=== PATIENT | female | born 1990 | race Caucasian/White ===

== ENCOUNTER 2016-05-23 12:47 | Emergency (ER) | payer MEDICAID ==
[2016-05-23] MEDS ORDERED: ACETAMINOPHEN 325 MG TABLET PO STA (15:35)
[2016-05-23] MEDS ORDERED: ONDANSETRON ODT 4 MG TABLET TL STA (15:35)
[2016-05-23] MEDS ORDERED: DEXAMETHASONE 10 MG/ML VIAL PO STA (15:35)
[2016-05-23] MEDS ORDERED: ONDANSETRON ODT 4 MG TABLET ONE (15:46)
[2016-05-23] MEDS ORDERED: DEXAMETHASONE 10 MG/ML VIAL ONE (15:46)
[2016-05-23] MEDS ORDERED: ACETAMINOPHEN 325 MG TABLET PO ONE (15:46)
== END 2016-05-23 16:56 | disposition home or self-care (01) ==
DX: J10.1 Influenza due to other identified influenza virus with other respiratory manifestations (principal)
CPT/HCPCS: 87275; 87276; 99283; A9270; Q0162

== ENCOUNTER 2017-06-02 17:03 | Emergency (ER) | payer MEDICAID ==
--- NOTE | 2017-06-02 17:29 | ED Physician Documentation ---
PD HPI CHEST PAIN - Stated complaint Stated Complaint: CP - Chief complaint Chief Complaint: Cardiac - History obtained from History obtained from: Patient - History of Present Illness Timing - onset: Other (For the last month she has had been having increasing episodic chest pain especially at night when lying flat in bed. She has not noticed any food triggers. She is not short of breath per se but it does get worse with deep breathing. It is in the low sternum. No recent travel, control use, pedal edema, leg pain, pertinent family history, or history of DVT or PE or hemoptysis.) Review of Systems Constitutional: denies: Fever, Chills Ears: reports: Reviewed and negative Throat: reports: Reviewed and negative Cardiac: reports: Chest pain / pressure. denies: Palpitations, Pedal edema, Calf pain Respiratory: denies: Dyspnea, Cough, Hemoptysis, Wheezing PD PAST MEDICAL HISTORY - Past Medical History Past Medical History: No Cardiovascular: None Respiratory: None Neuro: None Endocrine/Autoimmune: None - Past Surgical History Past Surgical History: No - Present Medications Home Medications: Ambulatory Orders Medication Instructions Recorded Confirmed HYDROcod/ACETAM 5/325 [[place] 5/325] 1 - 2 ea PO Q6H PRN #15 tablet 06/02/17 - Allergies Allergies/Adverse Reactions: Allergies Allergy/AdvReac Type Severity Reaction Status Date / Time latex Allergy Hives Verified 05/23/16 13:05 - Social History Does the pt smoke?: No Smoking Status: Never smoker Does the pt drink ETOH?: No - Immunizations Immunizations are current?: Yes PD ED PE NORMAL - Vitals Vital signs reviewed: Yes - General General: Alert and oriented X 3, No acute distress - Neck Neck: Supple, no meningeal sign, No bony TTP - Cardiac Cardiac: RRR, No murmur - Respiratory Respiratory: No respiratory distress, Clear bilaterally - Abdomen Abdomen: Non distended, Other (Mild TTP RUQ no G/R) - Back Back: No CVA TTP, No spinal TTP - Extremities Extremities: No edema, No calf tenderness / cord - Neuro Neuro: Alert and oriented X 3, Normal speech Results - Vitals Vitals: Vital Signs - 24 hr 06/02/17 06/02/17 17:10 19:55 Temperature 36.5 C 36.6 C Heart Rate 86 74 Respiratory 18 20 Rate Blood Pressure 176/81 H 130/68 O2 Saturation 99 96 Oxygen O2 Source Room air - EKG (time done) 1712 Rate: Rate (enter#) (78) Rhythm: NSR [place]: Normal Intervals: Normal MA QRS: Normal Ischemia: Normal ST segments Computer interpretation: Agree with computer - Labs Labs: Laboratory Tests 06/02/17 06/02/17 06/02/17 17:40 17:40 17:40 WBC 7.5 RBC 4.61 Hgb 13.0 Hct 38.6 MCV 83.8 MCH 28.2 MCHC 33.7 RDW 13.1 Plt Count 227 MPV 9.2 Neut # 4.3 Lymph # 2.2 Forrest # 0.6 Eos # 0.3 Baso # 0.1 Absolute Nucleated RBC 0.01 Nucleated RBC % 0.1 Sodium 137 Potassium 3.9 Chloride 105 Carbon Dioxide 23 Anion Gap 9.0 BUN 16 Creatinine 0.8 Estimated GFR (MDRD) 86 L Glucose 98 Calcium 9.4 Total Bilirubin 0.6 AST 46 H ALT 93 H Alkaline Phosphatase 44 Troponin I < 0.04 Total Protein 8.0 Albumin 4.5 Globulin 3.5 Albumin/Globulin Ratio 1.3 Lipase 32 Serum HCG, Qual 06/02/17 17:40 WBC RBC Hgb Hct MCV MCH MCHC RDW Plt Count MPV Neut # Lymph # Forrest # Eos # Baso # Absolute Nucleated RBC Nucleated RBC % Sodium Potassium Chloride Carbon Dioxide Anion Gap BUN Creatinine Estimated GFR (MDRD) Glucose Calcium Total Bilirubin AST ALT Alkaline Phosphatase Troponin I Total Protein Albumin Globulin Albumin/Globulin Ratio Lipase Serum HCG, Qual NEGATIVE - Rads (name of study) 2v chest Radiology: EMP read contemporaneously (NAD) RUQ sono Radiology: EMP read contemporaneously (stone in neck) PD MEDICAL DECISION MAKING - ED course ED course: 26-year-old woman with episodic subacute chest pain which on examination is most likely biliary in origin which is corresponded with a stone in the gallbladder neck but no other evidence of cholecystitis. The fatty liver is previously known diagnosis by the patient. She was advised on dietary changes pending surgical consultation for potential cholecystectomy. Departure - Departure Disposition: 01 Home, Self Care Clinical Impression: Biliary colic Chest pain Qualifiers: Chest pain type: unspecified Qualified Code(s): R07.9 - Chest pain, unspecified Condition: Good Record reviewed to determine appropriate education?: Yes Instructions: ED Chest Pain NonCardiac, ED Gallstone W Biliary Colic Follow-Up: ALBINA CANO MD [Provider Admit Priv/Credential] - Prescriptions: HYDROcod/ACETAM 5/325 [[place] 5/325] 1 - 2 ea PO Q6H PRN #15 tablet PRN Reason: Pain Comments: Follow-up with the surgeon for evaluation for having her gallbladder removed, very low fat/low protein diet until then as discussed. Return if worse. Your blood pressure was elevated today on check into the emergency department. This does not mean that you have hypertension, it is a common phenomenon to come to the emergency department and have elevated blood pressure. I recommend that you see your primary care physician within the week to have it rechecked when you are feeling better. Do not drink or drive while taking narcotic pain medication. Note that many narcotic pain relievers also contain Tylenol/acetaminophen. Please ensure that your total dose of acetaminophen from all sources does not exceed 3 g (3000 mg) per day. You may get constipated while on this medication. Take a stool softener such as Colace twice a day while you are on it. Also add an ajjl-pbn-[id number] laxative such as senna or MiraLAX on any day that you do not have a bowel movement. If you received a narcotic pain medication or sedative while in the emergency department, do not drive for the next 24 hours.
[2017-06-02 17:46] LABS: BASOPHILS # (AUTO) 0.1 10^3/uL (0.0-0.1); BASOPHILS % (AUTO) 0.8 %; EOSINOPHILS # (AUTO) 0.3 10^3/uL (0.0-0.7); EOSINOPHILS % (AUTO) 3.9 %; LYMPHOCYTES # (AUTO) 2.2 10^3/uL (1.5-3.5); LYMPHOCYTES % (AUTO) 29.2 %; MEAN CORPUSCULAR HEMOGLOBIN 28.2 pg (27.0-31.0); MEAN CORPUSCULAR HGB CONC 33.7 g/dL (32.0-36.0); MEAN CORPUSCULAR VOLUME 83.8 fL (81.0-99.0); MEAN PLATELET VOLUME 9.2 fL (7.9-10.8); MONOCYTES # (AUTO) 0.6 10^3/uL (0.0-1.0); MONOCYTES % (AUTO) 8.6 %; NEUTROPHILS # (AUTO) 4.3 10^3/uL (1.5-6.6); NEUTROPHILS % (AUTO) 57.5 %; PLT - PLATELET COUNT 227 10^3/uL (130-450); RED BLOOD COUNT 4.61 10^6/uL (4.20-5.40); RED CELL DISTRIBUTION WIDTH 13.1 % (12.0-15.0); WHITE BLOOD COUNT 7.5 x10^3/uL (4.8-10.8)
[2017-06-02 17:57] LABS: ALBUMIN 4.5 g/dL (3.2-5.5); ALBUMIN/GLOBULIN RATIO 1.3 (1.0-2.2); BILIRUBIN,TOTAL 0.6 mg/dL (0.2-1.0); CALCIUM 9.4 mg/dL (8.5-10.3); CREATININE 0.8 mg/dL (0.4-1.0)
[2017-06-02 18:18] LABS: HCG,QUALITATIVE BLOOD NEGATIVE
--- NOTE | 2017-06-02 19:03 | XRAY Preliminary Report ---
Exam: XR CHEST 2 VIEW X-RAY IMPRESSION: Normal 2-view chest radiography. [facility] SITE ID: [id number]
--- NOTE | 2017-06-02 19:03 | XRAY Report ---
EXAM: CHEST RADIOGRAPHY EXAM DATE: 06/02/2017 06:30 PM. CLINICAL HISTORY: Chest pain. COMPARISON: None. TECHNIQUE: 2 views. FINDINGS: Lungs/Pleura: No focal opacities evident. No pleural effusion. No pneumothorax. Normal volumes. Mediastinum: Heart and mediastinal contours are unremarkable. Other: None. IMPRESSION: Normal 2-view chest radiography. [facility] Referring Provider Line: [phone] SITE ID: [id number]
[2017-06-02 19:56] VITALS: BP 130/68
--- NOTE | 2017-06-02 20:05 | Ultrasound Preliminary Report ---
Exam: US ABDOMEN LIMITED IMPRESSION: 1. Hepatomegaly with dense echogenic hepatic parenchyma typically seen with fatty replacement. No hep atic lesions. 2. Contracted gallbladder with possible cholelithiasis in the gallbladder neck. No gallbladder wall t hickening. Per hair dresser, the patient is tender over the gallbladder. 3. No biliary ductal dilatation. [facility] SITE ID: [id number]
--- NOTE | 2017-06-02 20:05 | Ultrasound Report ---
EXAM: ABDOMEN ULTRASOUND LIMITED, RUQ EXAM DATE: 06/02/2017 07:36 PM. CLINICAL HISTORY: Chest pain, right upper quadrant tenderness to palpation. COMPARISON: None. TECHNIQUE: Real-time scanning was performed with static images obtained. FINDINGS: Detail limited due to sonographic parameters and body habitus. Liver: Dense echogenic hepatic parenchyma. No hepatic lesions. No intrahepatic ductal dilatation. The entire liver is not optimally visualized. The liver is enlarged, 21 cm. Main portal vein flow: Paten t. Gallbladder: Contracted. No intraluminal calculi. 6 mm echogenic structure possibly a calculus by th e gallbladder neck. Per trailer park manager, the patient is tender over the gallbladder. Biliary System: CBD measures 3 mm. Common bile duct is not well seen. Right kidney is normal in contour and echotexture measures 12.7 cm. No hydronephrosis. The pancreas is not well seen. Other: None. IMPRESSION: 1. Hepatomegaly with dense echogenic hepatic parenchyma typically seen with fatty replacement. No hep atic lesions. 2. Contracted gallbladder with possible cholelithiasis in the gallbladder neck. No gallbladder wall t hickening. Per trailer park manager, the patient is tender over the gallbladder. 3. No biliary ductal dilatation. [facility] Referring Provider Line: [phone] SITE ID: [id number]
[2017-06-02] MEDS ORDERED: HYDROcod/ACET 5/325 Prepack 6 PO STA (20:19)
== END 2017-06-02 20:30 | disposition home or self-care (01) ==
LOC: ED 17:03
DX: K80.50 Calculus of bile duct without cholangitis or cholecystitis without obstruction (principal); R07.9 Chest pain, unspecified; R03.0 Elevated blood-pressure reading, without diagnosis of hypertension
CPT/HCPCS: 36415; 71046; 76705; 80053; 83690; 84484; 84703; 85025; 93005; 99283; 99284

== ENCOUNTER 2017-07-18 08:07 | Outpatient (CLI) | payer MEDICAID ==
--- NOTE | 2017-07-18 17:41 | Ultrasound Report ---
LIMITED ABDOMINAL ULTRASOUND: 07/18/2017 CLINICAL INDICATION: Right upper quadrant pain. COMPARISON: 06/02/2017 TECHNIQUE: Real-time scanning was performed with retail representative static images obtained. FINDINGS: The liver measures 22 cm. Hepatic echogenicity is again diffusely increased, compatible with fatty infiltration. No gross hepatic lesion is appreciated. No intrahepatic biliary dilatation is seen. The common bile duct measures 3 mm. The gallbladder is normal, and the right kidney demonstrates no hydronephrosis. No free fluid is present. IMPRESSION: FATTY INFILTRATION OF THE LIVER, LIMITING EVALUATION. NO GROSS MASS. NO CHOLELITHIASIS OR BILIARY OBSTRUCTION. TD: 07/18/2017 17:40
== END 2017-07-18 08:08 | disposition home or self-care (01) ==
LOC: DI 08:07
PROVIDERS: ATTEND Surgery
DX: K76.0 Fatty (change of) liver, not elsewhere classified (principal)
CPT/HCPCS: 76705

== ENCOUNTER 2019-08-27 03:57 | Emergency (ER) | payer MEDICAID ==
--- NOTE | 2019-08-27 04:05 | ED Physician Documentation ---
History of Present Illness - Stated complaint Stated Complaint: CHEST TIGHT/L ARM PX - History obtained from History obtained from: Patient (The patient and her mother are very concerned with the current pandemic.The patient is a 28-year-old female who presents here tonight with her mother with a chief complaint of being concerned that they could have covid 19.The patient denies any fevers, headache, neck pain, hemoptysis rashes recent travel outside the country syncope severe shortness of breath or any history of pulmonary embolism or DVT denies any lower extremity swelling. She denies headache.) Review of Systems Constitutional: reports: Reviewed and negative Eyes: reports: Reviewed and negative Ears: reports: Reviewed and negative Nose: reports: Reviewed and negative Throat: reports: Reviewed and negative Cardiac: reports: Reviewed and negative Respiratory: reports: Dyspnea GI: reports: Reviewed and negative : reports: Reviewed and negative Skin: reports: Reviewed and negative Musculoskeletal: reports: Reviewed and negative Neurologic: reports: Reviewed and negative Psychiatric: reports: Reviewed and negative Endocrine: reports: Reviewed and negative Immunocompromised: reports: Reviewed and negative PD PAST MEDICAL HISTORY - Past Medical History Cardiovascular: None Respiratory: None Endocrine/Autoimmune: None - Past Surgical History Past Surgical History: No - Present Medications Home Medications: Ambulatory Orders Medication Instructions Recorded Confirmed HYDROcod/ACETAM 5/325 [[place] 5/325] 1 - 2 ea PO Q6H PRN #15 tablet 06/02/17 - Allergies Allergies/Adverse Reactions: Allergies Allergy/AdvReac Type Severity Reaction Status Date / Time latex Allergy Hives Verified 05/23/16 13:05 - Social History Does the pt smoke?: No Smoking Status: Never smoker Does the pt drink ETOH?: No - Immunizations Immunizations are current?: Yes PD ED PE NORMAL - Vitals Vital signs reviewed: Yes - General General: Alert and oriented X 3, No acute distress, Well developed/nourished - HEENT HEENT: Atraumatic, PERRL, Moist mucous membranes, Pharynx benign - Neck Neck: Supple, no meningeal sign, No bony TTP, No JVD - Cardiac Cardiac: RRR, No murmur, Strong equal pulses - Respiratory Respiratory: No respiratory distress, Clear bilaterally - Abdomen Abdomen: Normal bowel sounds, Soft, Non tender, Non distended, No organomegaly - Back Back: No CVA TTP, No spinal TTP - Derm Derm: Normal color, Warm and dry, No rash - Extremities Extremities: No deformity, No tenderness to palpate, Normal ROM s pain, No edema, No calf tenderness / cord - Neuro Neuro: Alert and oriented X 3, pharmacogeneticist 2-12 intact, No motor deficit, No sensory deficit, Normal speech - Psych Psych: Other (anxious) Results - Vitals Vitals: Vital Signs - 24 hr 08/27/19 08/27/19 04:05 04:43 Temperature 37.6 C H Heart Rate 98 68 Respiratory 17 15 Rate Blood Pressure 172/98 H 150/93 H O2 Saturation 99 97 Oxygen O2 Source Room air - EKG (time done) 04:07 Rate: Other (no stemi) PD MEDICAL DECISION MAKING - ED course Complexity details: considered differential (Patient and her mother are both concerned about the covid19 pandemic. Her EKG shows no STEMI. Her PERC is 0, hx and exam not consistent with TX, cxr neg, ekg is nonspecific. patient has follow up today with her pcp. ) Departure - Departure Disposition: 01 Home, Self Care Clinical Impression: Dyspnea Qualifiers: Dyspnea type: unspecified Qualified Code(s): R06.00 - Dyspnea, unspecified Condition: Stable Instructions: ED Dyspnea Shortness of Breath Follow-Up: ZARA WILDER MD [Primary Care Provider] - 08/27/19 Comments: Call your primary care provider today to schedule a follow-up.
--- NOTE | 2019-08-27 04:41 | XRAY Report ---
Reason: sob Procedure Date: 08/27/2019 Accession Number: [id number] / [id number] Procedure: XR - Chest 1 View X-Ray CPT Code: 44109 Final Report FULL RESULT: EXAM: CHEST RADIOGRAPHY EXAM DATE: 08/27/2019 04:28 AM. CLINICAL HISTORY: Short of breath. COMPARISON: CHEST 2 VIEW 06/02/2017 6:25 PM. TECHNIQUE: 1 view. FINDINGS: Lungs/Pleura: No focal opacities evident. No pleural effusion. No pneumothorax. Mediastinum: Within exam limitations, the cardiomediastinal contour is normal. Other: None. IMPRESSION: Stable negative single view chest. [facility]
[2019-08-27 04:43] VITALS: BP 150/93
== END 2019-08-27 05:00 | disposition home or self-care (01) ==
LOC: ED 03:57
DX: R06.00 Dyspnea, unspecified (principal)
CPT/HCPCS: 71045; 93005; 99283; 99284

== ENCOUNTER 2020-08-06 16:27 | Emergency (ER) | payer MEDICAID ==
[2020-08-06] MEDS ORDERED: BUTALB/ACETAM/CAFF 50/325/40MG TABLET PO STA (17:13)
--- NOTE | 2020-08-06 17:17 | ED Physician Documentation ---
PD HPI HEADACHE - Stated complaint Stated Complaint: AKERS - Chief complaint Chief Complaint: Neuro - History obtained from History obtained from: Patient - History of Present Illness Timing - onset: How many months ago (1) Timing - onset during: Rest Timing - details: Gradual onset Pain level max: 8 Pain level now: 8 Location: Back Quality: No: Thunderclap, Throbbing, Aching, Stabbing, Tightness, Like head is exploding Associated symptoms: No: Fever, Stiff neck, Nausea, Vomiting, Weakness, Numbness, Syncope, Seizure, Eye pain, Vision changes Improved by: Dark room Worsened by: Light, Noise Contributing factors: No: Anticoagulated, Possible carbon monoxide, Hypertension, Recent illness, Trauma Recently seen: Not recently seen - Additional information Additional information: Patient is a 29-year-old female who presents to the emergency department with a headache, this is been ongoing for the past month. She states it comes and goes. She states she does not normally get headaches. It is always in the same spot. She states it is where her prior traumatic brain injury from 2013 was. She is very concerned that she may have a tumor or a rebleed. No vomiting. No nausea. Better with dark room and closing her eyes. Worse with light and noise. Denies any recent trauma. No focal neurological deficits. Review of Systems Constitutional: denies: Fever, Chills Respiratory: denies: Cough GI: denies: Nausea, Vomiting Skin: denies: Rash Musculoskeletal: denies: Neck pain, Back pain Neurologic: denies: Generalized weakness, Focal weakness, Seizure, Confused, Head injury, LOC PD PAST MEDICAL HISTORY - Past Medical History Past Medical History: Yes Cardiovascular: None Respiratory: None Neuro: None Endocrine/Autoimmune: None GI: None RENTAL SALESPERSON: None : None HEENT: None Psych: None Musculoskeletal: Other Derm: None - Past Surgical History Past Surgical History: No - Allergies Allergies/Adverse Reactions: Allergies Allergy/AdvReac Type Severity Reaction Status Date / Time latex Allergy Hives Verified 08/06/20 16:32 - Social History Does the pt smoke?: No Smoking Status: Never smoker Does the pt drink ETOH?: No Does the pt have substance abuse?: No - Immunizations Immunizations are current?: Yes - POLST Patient has POLST: No PD ED PE NORMAL - Vitals Vital signs reviewed: Yes - General General: Alert and oriented X 3, No acute distress, Well developed/nourished - HEENT HEENT: Atraumatic, PERRL, EOMI, Moist mucous membranes - Neck Neck: Supple, no meningeal sign - Cardiac Cardiac: RRR, Strong equal pulses - Respiratory Respiratory: No respiratory distress, Clear bilaterally - Abdomen Abdomen: Soft, Non tender, Non distended - Derm Derm: Warm and dry - Extremities Extremities: No edema, No calf tenderness / cord - Neuro Neuro: Alert and oriented X 3, public health teacher 2-12 intact, No motor deficit, No sensory deficit, Normal speech Eye Opening: Spontaneous Motor: Obeys Commands Verbal: Oriented GCS Score: 15 - Psych Psych: Normal mood, Normal affect Results - Vitals Vitals: Vital Signs - 24 hr 08/06/20 08/06/20 16:29 18:31 Temperature 36.2 C L 36.8 C Heart Rate 90 90 Respiratory 20 18 Rate Blood Pressure 195/95 H 135/78 H O2 Saturation 96 100 Oxygen O2 Source Room air - Rads (name of study) head CT Radiology: Prelim report reviewed, EMP read contemporaneously, See rad report ( no acute abnormalities) PD MEDICAL DECISION MAKING - ED course Complexity details: reviewed results, re-evaluated patient, considered differential, d/w patient ED course: 29-year-old female with a headache. This resolved after Fioricet. She was very concerned about a bleed in the region of her TBI. Negative head CT. Normal neurological exam. Patient counseled regarding signs and symptoms for which I believe and urgent re-evaluation would be necessary. Patient with good understanding of and agreement to plan and is comfortable going home at this time This document was made in part using voice recognition software. While efforts are made to proofread this document, sound alike and grammatical errors may occur. Departure - Departure Disposition: 01 Home, Self Care Clinical Impression: Headache Qualifiers: Headache type: unspecified Headache chronicity pattern: acute headache Intractability: not intractable Qualified Code(s): R51.9 - Headache, unspecified Condition: Good Instructions: ED Cephalgia Unspecified Follow-Up: ZARA WILDER MD [Primary Care Provider] - Within 1 week Comments: Your head CT does not show any acute abnormalities today. Please follow-up with your doctor for further care. Return if you worsen Discharge Date/Time: 08/06/20 18:33
--- NOTE | 2020-08-06 18:06 | CT Report ---
PROCEDURE: HEAD WO INDICATIONS: h/o TBI, worsening AKERS x 1 month TECHNIQUE: Noncontrast 4.5 mm thick angled axial sections acquired from the foramen magnum to the vertex. For r adiation dose reduction, the following was used: automated exposure control, adjustment of mA and/or kV according to patient size. COMPARISON: None. FINDINGS: Image quality: Excellent. CSF spaces: Basal cisterns are patent. No extra-axial fluid collections. Ventricles are normal in size and shape. Brain: No midline shift. No intracranial masses or hemorrhage. Prado-white matter interface is norm al. Skull and face: Calvarium and visualized facial bones are intact, without suspicious lesions. Sinuses: Visualized sinuses and mastoids are clear. IMPRESSION: No acute intracranial finding. Reviewed by: Andi Harper MD on 08/06/2020 6:04 PM PDT Approved by: Andi Harper MD on 08/06/2020 6:04 PM PDT Station ID: [id number]
[2020-08-06 18:34] VITALS: BP 135/78
== END 2020-08-06 18:33 | disposition home or self-care (01) ==
LOC: ED 16:27
DX: R51.9 Headache, unspecified (principal); Z87.820 Personal history of traumatic brain injury
CPT/HCPCS: 70450; 99284; A9270

== ENCOUNTER 2021-08-19 13:43 | Outpatient (CLI) | payer MEDICAID ==
[2021-08-19 15:21] LABS: BASOPHILS # (AUTO) 0.1 10^3/uL (0.0-0.1); BASOPHILS % (AUTO) 0.9 %; EOSINOPHILS # (AUTO) 0.2 10^3/uL (0.0-0.7); EOSINOPHILS % (AUTO) 2.8 %; HCT - HEMATOCRIT 41.9 % (37.0-47.0); HGB - HEMOGLOBIN 14.4 g/dL (12.0-16.0); LYMPHOCYTES # (AUTO) 2.4 10^3/uL (1.5-3.5); LYMPHOCYTES % (AUTO) 29.6 %; MEAN CORPUSCULAR HGB CONC 34.4 g/dL (32.0-36.0); MEAN CORPUSCULAR VOLUME 84.3 fL (81.0-99.0); MEAN PLATELET VOLUME 11.5 fL (7.9-10.8); MONOCYTES # (AUTO) 0.6 10^3/uL (0.0-1.0); MONOCYTES % (AUTO) 7.5 %; NEUTROPHILS # (AUTO) 4.8 10^3/uL (1.5-6.6); NEUTROPHILS % (AUTO) 58.8 %; PLT - PLATELET COUNT 235 10^3/uL (130-450); RED BLOOD COUNT 4.97 10^6/uL (4.20-5.40); RED CELL DISTRIBUTION WIDTH 12.2 % (12.0-15.0); WHITE BLOOD COUNT 8.2 x10^3/uL (4.8-10.8)
== END 2021-08-19 13:44 | disposition home or self-care (01) ==
LOC: LAB.S 13:43
PROVIDERS: ATTEND Physician Assistant
DX: F64.8 Other gender identity disorders (principal); Z79.899 Other long term (current) drug therapy
CPT/HCPCS: 36415; 84403; 85025

== ENCOUNTER 2023-12-04 15:16 | Outpatient (CLI) | payer MEDICAID | END 2023-12-04 15:17 | disposition home or self-care (01) | LOC: DI 15:16 | PROVIDERS: ATTEND Physician Assistant | DX: I10 Essential (primary) hypertension (principal) | CPT/HCPCS: 93307 ==

== ENCOUNTER 2023-12-31 10:15 | Outpatient (CLI) | payer MEDICAID ==
--- NOTE | 2024-01-01 15:26 | XRAY Report ---
PROCEDURE: Lumbar Spine 2-3V INDICATIONS: LUMBAR PAIN TECHNIQUE: 3 view(s) of the lumbar spine were acquired. COMPARISON: None. FINDINGS: Bones: Vertebral body height and alignment is maintained. No suspicious bony lesions. Soft tissues: Overlying bowel gas pattern is normal. No suspicious soft tissue calcifications. IMPRESSION: Unremarkable lumbar spine radiographs Reviewed by: Arnulfo Garcia MD on 01/01/2024 2:25 PM [facility] Approved by: Arnulfo Garcia MD on 01/01/2024 2:25 PM AKDT Station ID: [id number]
--- NOTE | 2024-01-01 15:26 | XRAY Report ---
PROCEDURE: Hips w/Pelvis 2-3V BL INDICATIONS: HIP PAIN TECHNIQUE: 2 view(s) of the hip were acquired. COMPARISON: None FINDINGS: Bones: No fractures or dislocations. No suspicious bony lesions. The visualized pelvic ring appear s intact. Soft tissues: No suspicious soft tissue calcifications or masses. IMPRESSION: Unremarkable hip radiographs Reviewed by: Arnulfo Garcia MD on 01/01/2024 2:24 PM [facility] Approved by: Arnulfo Garcia MD on 01/01/2024 2:24 PM [facility] Station ID: [id number]
== END 2023-12-31 10:16 | disposition home or self-care (01) ==
LOC: DI 10:15
PROVIDERS: ATTEND Internal Medicine Cardiovascular Disease
DX: M54.50 Low back pain, unspecified (principal); M25.551 Pain in right hip; M25.552 Pain in left hip